=== PATIENT | female | born 1980 | race Caucasian/White ===

== ENCOUNTER 2018-05-21 21:37 | Emergency (ER) | payer OTHER ==
[~2018-05-21] VITALS: Ht 149.9 cm; Wt 54.4 kg
[~2018-05-21 21:37] MED LIST: PNEU16DI2; SINGULAIR 4MG4 MG; ZYRTEC10 M3
== END 2018-05-21 22:55 | disposition home or self-care (01) ==
LOC: ER 21:37
DX: L73.8 Other specified follicular disorders (principal)

== ENCOUNTER 2022-03-05 16:26 | Emergency (ER) | payer OTHER ==
[~2022-03-05] VITALS: Ht 149.9 cm; Wt 53.5 kg
== END 2022-03-05 18:02 | disposition home or self-care (01) ==
LOC: ER 16:26
DX: S90.871A Other superficial bite of right foot, initial encounter (principal); W54.0XXA Bitten by dog, initial encounter; Y93.89 Activity, other specified; Y92.89 Other specified places as the place of occurrence of the external cause; Y99.9 Unspecified external cause status; Z88.2 Allergy status to sulfonamides; Z88.1 Allergy status to other antibiotic agents; Z91.013 Allergy to seafood

== ENCOUNTER 2022-03-30 19:22 | Inpatient (IN) | payer OTHER ==
[~2022-03-30] VITALS: Ht 149.9 cm; Wt 54.4 kg
== END 2022-04-07 22:30 | disposition home or self-care (01) | DRG 541 ==
LOC: ER 19:22 → MEDI 03-31 10:55 → SURH 03-31 10:55
PROVIDERS: ADMIT Internal Medicine; ATTEND Internal Medicine
PROC: BQ3DZZZ Magnetic Resonance Imaging (MRI) of Right Lower Leg (ICD-10-PCS; principal; 2022-04-03)
PROC: 05H633Z Insertion of Infusion Device into Left Subclavian Vein, Percutaneous Approach (ICD-10-PCS; 2022-04-04)
DX: M86.8X7 Other osteomyelitis, ankle and foot (principal); S91.351A Open bite, right foot, initial encounter; W54.0XXA Bitten by dog, initial encounter; B96.89 Other specified bacterial agents as the cause of diseases classified elsewhere; L73.8 Other specified follicular disorders; Z20.822 Contact with and (suspected) exposure to COVID-19
CPT/HCPCS: 73722